=== PATIENT | male | born 1965 | race Two or more races ===

== ENCOUNTER 2021-01-26 19:21 | Emergency (ER) | payer SELFPAY ==
[~2021-01-26] VITALS: Ht 167.6 cm; Wt 73.9 kg
--- NOTE | 2021-01-26 19:35 | NUR ---
THE PATIENT BIB [facility] [address] WITH EHOT USE. ALERT AND ORIENTED X1. DENIES PAIN. IN ROOM AIR AND DENIES SOB. RESPIRATION REGUAL AND UNLABORED. ATTACHED TO THE MONITOR. WILL CONTINUE TO MONITOR THE PATIENT.
--- NOTE | 2021-01-26 19:46 | NUR ---
NG TUBE INSERTED. WAITING FOR STAT CHEST XRAY
--- NOTE | 2021-01-26 23:20 | NUR ---
KG WITNESSED PATIENT ATTEMPTING TO DRINK BOTTLE OF ALCOHOL. PT REFUSED TO GIVE BOTTLE TO KG. BOTTLE CONFISCATED FROM PATIENT.
--- NOTE | 2021-01-27 02:42 | NUR ---
PT ambulatory with a steady gait. Patient is awake and alert to self, day, and place. DR VAZQUEZ NOTIFIED.
--- NOTE | 2021-01-27 02:47 | NUR ---
PT OK TO BE DISCHARGED PER DR VAZQUEZ. Patient discharged to home in stable condition. Written and verbal after care instructions given. Patient verbalizes understanding of instruction.Patient is awake and alert to self, day, and place. PT ambulatory with a steady gait
[2021-01-27 02:52] VITALS: BP 132/79
== END 2021-01-27 02:52 | disposition home or self-care (01) ==
LOC: ER 19:23
DX: F10.129 Alcohol abuse with intoxication, unspecified (principal); Y90.9 Presence of alcohol in blood, level not specified
CPT/HCPCS: 82962-TC